=== PATIENT | female | born 1980 | race Caucasian/White ===

== ENCOUNTER 2018-09-19 09:28 | Emergency (ER) | payer OTHER ==
[2018-09-19] MEDS ORDERED: Albuterol/Ipratropium 3.0-0.5 MG/3 ML Neb Soln NEB ONE (09:44)
--- NOTE | 2018-09-19 09:44 | EDM.PDOC ---
ED HPI GENERAL MEDICAL PROBLEM - General Chief Complaint: Respiratory Problem Stated Complaint: SICK Time Seen by Provider: 09/19/18 09:41 - History of Present Illness INITIAL COMMENTS - FREE TEXT/NARRATIVE: HISTORY AND PHYSICAL: History of present illness: Patient 38-year-old female presents with a concern of cough congestion over last week she does have a history of asthma she been using her inhaler with no significant improvement. She denies fever chills nausea vomiting Review of systems: As per history of present illness and below otherwise all systems reviewed and negative. Past medical history: As per history of present illness and as reviewed below otherwise noncontributory. Surgical history: As per history of present illness and as reviewed below otherwise noncontributory. Social history: No reported history of drug or alcohol abuse. Family history: As per history of present illness and as reviewed below otherwise noncontributory. Physical exam: HEENT: Atraumatic, normocephalic, pupils reactive, negative for conjunctival pallor or scleral icterus, mucous membranes moist, throat clear, neck supple, nontender, trachea midline. Lungs: Coarse bilaterally with rhonchi noted right greater than left, breath sounds equal bilaterally, chest nontender. Heart: S1S2, regular, negative for clicks, rubs, or JVD. Abdomen: Soft, nondistended, nontender. Negative for masses or hepatosplenomegaly. Negative for costovertebral tenderness. Pelvis: Stable nontender. Genitourinary: Deferred. Rectal: Deferred. Extremities: Atraumatic, negative for cords or calf pain. Neurovascular unremarkable. Neuro: Awake, alert, oriented. Cranial nerves II through XII unremarkable. Cerebellum unremarkable. Motor and sensory unremarkable throughout. Exam nonfocal. Diagnostics: Influenza screen chest x-ray Therapeutics: Albuterol ipratropium nebulizer Impression: #1 tracheobronchitis #2 history of asthma Definitive disposition and diagnosis as appropriate pending reevaluation and review of above. - Related Data Allergies Allergy/AdvReac Type Severity Reaction Status Date / Time amoxicillin Allergy Nausea and Verified 09/19/18 09:39 Vomiting ampicillin Allergy Nausea and Verified 09/19/18 09:39 Vomiting Home Meds: Home Meds Albuterol [Proventil HFA] 1 puff INH QID PRN 09/19/18 [History] ED ROS GENERAL - Review of Systems Review Of Systems: ROS reveals no pertinent complaints other than HPI. ED EXAM, GENERAL - Physical Exam Exam: See Below (See dictation) Course - Vital Signs Last Recorded V/S: Last Vital Signs Temp 36.4 C 09/19/18 09:40 Pulse 82 09/19/18 09:40 Resp 18 09/19/18 09:40 BP 136/89 09/19/18 09:40 Pulse Ox 96 09/19/18 09:40 - Orders/Labs/Meds Orders: Active Orders 24 hr Category Date Time Status RT Aerosol Therapy [RC] ASDIRECTED Care 09/19/18 09:44 Active Labs: Laboratory Tests 09/19/18 Range/Units 10:15 Urine HCG, Qual NEGATIVE (NEGATIVE) Meds: Medications Discontinued Medications Generic Name Dose Route Start Last Admin Trade Name Frerajat PRN Reason Stop Dose Admin Albuterol/Ipratropium 3 ml 09/19/18 09:44 09/19/18 09:51 Duoneb 3.0-0.5 Mg/3 Ml NEB 09/19/18 09:45 3 ml ONETIME ONE Administration Departure - Departure Time of Disposition: 11:14 Disposition: Home, Self-Care 01 Condition: Good Clinical Impression: Asthma, Tracheobronchitis - Discharge Information Referrals: Baldemar Mata MD [Primary Care Provider] - Forms: ED Department Discharge Additional Instructions: The following information is given to patients seen in the emergency department who are being discharged to home. This information is to outline your options for follow-up care. We provide all patients seen in our emergency department with a follow-up referral. The need for follow-up, as well as the timing and circumstances, are variable depending upon the specifics of your emergency department visit. If you don't have a primary care physician on staff, we will provide you with a referral. We always advise you to contact your personal physician following an emergency department visit to inform them of the circumstance of the visit and for follow-up with them and/or the need for any referrals to a consulting specialist. The emergency department will also refer you to a specialist when appropriate. This referral assures that you have the opportunity for followup care with a specialist. All of these measure are taken in an effort to provide you with optimal care, which includes your followup. Under all circumstances we always encourage you to contact your private physician who remains a resource for coordinating your care. When calling for followup care, please make the office aware that this follow-up is from your recent emergency room visit. If for any reason you are refused follow-up, please contact the [facility] emergency department at and asked to speak to the emergency department charge nurse. Z-J Luis Medrol as prescribed continue albuterol as prescribed and follow-up private medical doctor as needed as discussed and return as needed as discussed - My Orders Last 24 Hours: My Active Orders 09/19/18 09:44 RT Aerosol Therapy [RC] ASDIRECTED - Assessment/Plan Last 24 Hours: My Active Orders 09/19/18 09:44 RT Aerosol Therapy [RC] ASDIRECTED
--- NOTE | 2018-09-19 11:13 | CR ---
EXAMINATION: Portable chest radiograph. HISTORY: Shortness of breath. FINDINGS: The trachea is midline. The cardiomediastinal silhouette is within normal limits. No pulmonary infiltrates, effusions or pneumothorax. Osseous structures appear unremarkable. IMPRESSION: No acute cardiopulmonary process.
== END 2018-09-19 11:28 | disposition home or self-care (01) ==
LOC: MW.ED 09:28
DX: J40 Bronchitis, not specified as acute or chronic (principal); Z88.1 Allergy status to other antibiotic agents; Z79.899 Other long term (current) drug therapy
CPT/HCPCS: 71045; 71045-26; 81025; 87804; 94640; 99284-25; J7620-GY

== ENCOUNTER 2020-01-06 05:56 | Emergency (ER) | payer BC, OTHER ==
[2020-01-06] MEDS ORDERED: Ondansetron 4 MG/2 ML SDV IVPUSH ONE ×2 (06:13→08:14)
[2020-01-06] MEDS ORDERED: Ketorolac 15 MG/ML SDV IVPUSH ONE (06:13)
[2020-01-06] MEDS ORDERED: Sodium Chloride 0.9% 1,000 ML IV ONE ×2 (06:13→10:55)
[2020-01-06] MEDS ORDERED: Sodium Chloride 0.9% 2.5 ML Syringe FLUSH PRN (06:13)
[2020-01-06] MEDS ORDERED: Sodium Chloride 0.9% 10 ML Syringe FLUSH PRN (06:13)
[2020-01-06] MEDS ORDERED: Ketorolac 30 MG/ML SDV ONE ×2 (06:17→06:51)
--- NOTE | 2020-01-06 06:23 | EDM.PDOC ---
<Shea Styles - Last Filed: 01/06/20 07:09> ED HPI GENERAL MEDICAL PROBLEM - General Chief Complaint: Abdominal Pain Stated Complaint: ABDOMINAL PAIN, VOMITING, CHILLS, NAUSEA Time Seen by Provider: 01/06/20 06:13 - History of Present Illness INITIAL COMMENTS - FREE TEXT/NARRATIVE: History of present illness: 39-year-old female presenting with epigastric and left lower quadrant abdominal pain as well as sore throat for the last 2 days, then this morning started to feel some chills and shakes. She did not have access to a thermometer and did not check her temperature. On arrival here she did not have a fever. She has not had any cough or difficulty breathing. She has been nauseated and has been having dry heaves as well. 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 Review of systems: As per history of present illness and below otherwise all systems reviewed and negative. Past medical history: As per history of present illness and as reviewed below otherwise noncontributory. Surgical history: As per history of present illness and as reviewed below otherwise noncontributory. , hysterectomy, intestinal surgery as a baby Social history: No reported history of drug or alcohol abuse. Denies tobacco Family history: As per history of present illness and as reviewed below otherwise noncontributory. Physical exam: GEN: no acute distress, well appearing HEENT: Atraumatic, normocephalic, mucous membranes moist, Neck: supple, nontender, trachea midline. Lungs: No respiratory distress. Heart: RRR Abdomen: Soft, nondistended, left lower quadrant tenderness, epigastric tenderness Back: nontender Extremities: Atraumatic. Neurovascularly intact. Neuro: Awake, alert, oriented. Neuro Exam nonfocal. Skin: warm, dry, no lesions Diagnostics: [] Therapeutics: [] MDM: Impression: [] Plan: [] Definitive disposition and diagnosis as appropriate pending reevaluation and review of above. Mid upper abdominal Pain Score (Numeric/FACES): 7 - Related Data Allergies Allergy/AdvReac Type Severity Reaction Status Date / Time amoxicillin Allergy Nausea and Verified 09/19/18 09:39 Vomiting ampicillin Allergy Nausea and Verified 09/19/18 09:39 Vomiting midazolam [From Versed] Allergy Change Verified 01/06/20 08:16 Mental Status scopolamine Allergy Cannot Verified 01/06/20 08:16 Remember Home Meds: Home Meds DULoxetine HCl [Duloxetine HCl] 30 mg PO DAILY 01/06/20 [History] Gabapentin [Neurontin] 900 mg PO DAILY 01/06/20 [History] valACYclovir [Valtrex] 500 mg PO ASDIRECTED PRN 01/06/20 [History] Past Medical History Respiratory History: Reports: Asthma Gastrointestinal History: Reports: None Genitourinary History: Reports: None 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 History: Reports: - Infectious Disease History Infectious Disease History: Reports: Chicken Pox - Past Surgical History Other GI Surgeries/Procedures: Gastro-atreias Female Surgical History: Reports: Section Social & Family History - Family History Family Medical History: Noncontributory - Caffeine Use Caffeine Use: Reports: Coffee, Soda ED ROS GENERAL - Review of Systems Review Of Systems: See Below (See HPI) ED EXAM, GI/ABD - Physical Exam Exam: See Below (See HPI) EKG INTERPRETATION EKG Interpretation Comments: EKG performed today at 6:09 AM, sinus tachycardia, rate 127, right atrial enlargement, no acute ischemia, no STEMI. Interpreted by me. Course - Vital Signs Text/Narrative:: Abdominal pain, nausea, dry heaves, no measured temperature but did have some chills. Started with a sore throat as well. No coughing. Potential COVID risk therefore COVID swab will be checked. We will also check labs and CT scan. Signed out to DR Bush at 7:00AM Departure - Departure Time of Disposition: 07:10 Disposition: Home, Self-Care 01 Clinical Impression: Sepsis - Discharge Information Referrals: Aimee Manuel NP [Primary Care Provider] - Forms: ED Department Discharge <Hakeem Bush - Last Filed: 01/06/20 11:20> Course - Vital Signs Text/Narrative:: At 930 I discussed the case with Dr. Hernandez. He states he will see the patient At [address] Palm saw the patient in the emergency department he is concerned about the complicated nature of her history and the findings on the CT he thinks she needs further radiology studies that cannot be performed here the potential for GI consult and therefore he recommends she be transferred to [place]. 10:30 a.m. I discussed the case with Dr. Dubose at [place] [facility] he will accept the patient Last Recorded V/S: Last Vital Signs Temp 35.8 C L 01/06/20 06:19 Pulse 106 H 01/06/20 07:44 Resp 16 01/06/20 07:44 BP 120/77 01/06/20 07:44 Pulse Ox 96 01/06/20 07:44 - Orders/Labs/Meds Orders: Active Orders 24 hr Category Date Time Status EKG Documentation Completion [RC] STAT Care 01/06/20 06:13 Active CORONAVIRUS COVID-19 MOUNA [MOLEC] Stat Lab 01/06/20 10:27 Received CULTURE BLOOD [BC] Stat Lab 01/06/20 06:35 Received CULTURE BLOOD [BC] Stat Lab 01/06/20 06:45 Received Sodium Chloride 0.9% [Normal Saline] 1,000 ml Med 01/06/20 10:55 Active IV .Bolus Sodium Chloride 0.9% [Saline Flush] Med 01/06/20 06:13 Active 10 ml FLUSH ASDIRECTED PRN Sodium Chloride 0.9% [Saline Flush] Med 01/06/20 06:13 Active 2.5 ml FLUSH ASDIRECTED PRN Blood Culture x2 Reflex Set [OM.PC] Stat Oth 01/06/20 06:14 Ordered Saline Lock Insert [OM.PC] Stat Oth 01/06/20 06:13 Ordered Medication Orders Sodium Chloride (Normal Saline) 1,000 mls @ 150 mls/hr IV .Bolus ONE Stop: 01/06/20 17:34 Last Admin: 01/06/20 11:02 Dose: 150 mls/hr Documented by: TONJA Sodium Chloride (Saline Flush) 10 ml FLUSH ASDIRECTED PRN PRN Reason: Keep Vein Open Last Admin: 01/06/20 07:17 Dose: 10 ml Documented by: TONJA Sodium Chloride (Saline Flush) 2.5 ml FLUSH ASDIRECTED PRN PRN Reason: Keep Vein Open Last Admin: 01/06/20 07:17 Dose: 2.5 ml Documented by: TONJA Labs: Laboratory Tests 01/06/20 01/06/20 01/06/20 Range/Units 05:35 06:15 06:15 WBC 22.04 H (4.0-11.0) K/uL RBC 4.26 L (4.30-5.90) M/uL Hgb 13.0 (12.0-16.0) g/dL Hct 39.7 (36.0-46.0) % MCV 93.2 (80.0-98.0) fL MCH 30.5 (27.0-32.0) pg MCHC 32.7 (31.0-37.0) g/dL RDW Std Deviation 45.6 (28.0-62.0) fl RDW Coeff of Abdiel 13 (11.0-15.0) % Plt Count 248 (150-400) K/uL MPV 10.50 (7.40-12.00) fL Neut % (Auto) 88.5 H (48.0-80.0) % Lymph % (Auto) 2.6 L (16.0-40.0) % [place] % (Auto) 8.8 (0.0-15.0) % Eos % (Auto) 0.0 (0.0-7.0) % Baso % (Auto) 0.1 (0.0-1.5) % Neut # (Auto) 19.5 H (1.4-5.7) K/uL Lymph # (Auto) 0.6 (0.6-2.4) K/uL [place] # (Auto) 2.0 H (0.0-0.8) K/uL Eos # (Auto) 0.0 (0.0-0.7) K/uL Baso # (Auto) 0.0 (0.0-0.1) K/uL Nucleated RBC % 0.0 /100WBC Nucleated RBCs # 0 K/uL Lactate (0.20-2.00) mmol/L Sodium 134 L (136-145) mmol/L Potassium 3.7 (3.5-5.1) mmol/L Chloride 99 (98-107) mmol/L Carbon Dioxide 25.8 (21.0-32.0) mmol/L BUN 10 (7.0-18.0) mg/dL Creatinine 0.8 (0.6-1.0) mg/dL Est Cr Clr Drug Dosing TNP Estimated GFR (MDRD) > 60.0 ml/min Glucose 138 H (74-106) mg/dL Calcium 9.0 (8.5-10.1) mg/dL Total Bilirubin 0.4 (0.2-1.0) mg/dL AST 13 L (15-37) IU/L ALT 18 (14-63) IU/L Alkaline Phosphatase 86 (46-116) U/L Total Protein 6.8 (6.4-8.2) g/dL Albumin 3.8 (3.4-5.0) g/dL Globulin 3.0 (2.6-4.0) g/dL Albumin/Globulin Ratio 1.3 (0.9-1.6) Lipase 43 L (73-393) U/L Urine Color Urine Appearance Urine pH (5.0-8.0) Ur Specific [place] (1.001-1.035) Urine Protein (NEGATIVE) mg/dL Urine Glucose (UA) (NEGATIVE) mg/dL Urine Ketones (NEGATIVE) mg/dL Urine Occult Blood (NEGATIVE) Urine Nitrite (NEGATIVE) Urine Bilirubin (NEGATIVE) Urine Urobilinogen (<2.0) EU/dL Ur Leukocyte Esterase (NEGATIVE) COVID-19 (MOUNA) NEGATIVE (NEGATIVE) 01/06/20 01/06/20 Range/Units 06:15 07:17 WBC (4.0-11.0) K/uL RBC (4.30-5.90) M/uL Hgb (12.0-16.0) g/dL Hct (36.0-46.0) % MCV (80.0-98.0) fL MCH (27.0-32.0) pg MCHC (31.0-37.0) g/dL RDW Std Deviation (28.0-62.0) fl RDW Coeff of Abdiel (11.0-15.0) % Plt Count (150-400) K/uL MPV (7.40-12.00) fL Neut % (Auto) (48.0-80.0) % Lymph % (Auto) (16.0-40.0) % [place] % (Auto) (0.0-15.0) % Eos % (Auto) (0.0-7.0) % Baso % (Auto) (0.0-1.5) % Neut # (Auto) (1.4-5.7) K/uL Lymph # (Auto) (0.6-2.4) K/uL [place] # (Auto) (0.0-0.8) K/uL Eos # (Auto) (0.0-0.7) K/uL Baso # (Auto) (0.0-0.1) K/uL Nucleated RBC % /100WBC Nucleated RBCs # K/uL Lactate 1.8 (0.20-2.00) mmol/L Sodium (136-145) mmol/L Potassium (3.5-5.1) mmol/L Chloride (98-107) mmol/L Carbon Dioxide (21.0-32.0) mmol/L BUN (7.0-18.0) mg/dL Creatinine (0.6-1.0) mg/dL Est Cr Clr Drug Dosing Estimated GFR (MDRD) ml/min Glucose (74-106) mg/dL Calcium (8.5-10.1) mg/dL Total Bilirubin (0.2-1.0) mg/dL AST (15-37) IU/L ALT (14-63) IU/L Alkaline Phosphatase (46-116) U/L Total Protein (6.4-8.2) g/dL Albumin (3.4-5.0) g/dL Globulin (2.6-4.0) g/dL Albumin/Globulin Ratio (0.9-1.6) Lipase (73-393) U/L Urine Color YELLOW Urine Appearance SLT CLOUDY Urine pH 5.5 (5.0-8.0) Ur Specific [place] 1.025 (1.001-1.035) Urine Protein NEGATIVE (NEGATIVE) mg/dL Urine Glucose (UA) NEGATIVE (NEGATIVE) mg/dL Urine Ketones NEGATIVE (NEGATIVE) mg/dL Urine Occult Blood NEGATIVE (NEGATIVE) Urine Nitrite NEGATIVE (NEGATIVE) Urine Bilirubin NEGATIVE (NEGATIVE) Urine Urobilinogen 0.2 (<2.0) EU/dL Ur Leukocyte Esterase NEGATIVE (NEGATIVE) COVID-19 (MOUNA) (NEGATIVE) Meds: Medications Generic Name Dose Route Start Last Admin Trade Name Freq PRN Reason Stop Dose Admin Sodium Chloride 1,000 mls @ 150 mls/hr 01/06/20 10:55 01/06/20 11:02 Normal Saline IV 01/06/20 17:34 150 mls/hr .Bolus ONE Administration Sodium Chloride 10 ml 01/06/20 06:13 07/11/20 07:17 Saline Flush FLUSH 10 ml ASDIRECTED PRN Administration Keep Vein Open Sodium Chloride 2.5 ml 01/06/20 06:13 01/06/20 07:17 Saline Flush FLUSH 2.5 ml ASDIRECTED PRN Administration Keep Vein Open Discontinued Medications Generic Name Dose Route Start Last Admin Trade Name Chantel PRN Reason Stop Dose Admin Sodium Chloride 1,000 mls @ 999 mls/hr 01/06/20 06:13 01/06/20 06:23 Normal Saline IV 01/06/20 07:13 999 mls/hr .Bolus ONE Administration Ceftriaxone Sodium/Dextrose 1 50 mls @ 100 mls/hr 01/06/20 06:36 01/06/20 07:09 gm/ Premix IV 01/06/20 07:05 100 mls/hr ONETIME ONE Administration Metronidazole 500 mg/ Premix 100 mls @ 100 mls/hr 01/06/20 09:15 01/06/20 09:26 IV 01/06/20 10:14 100 mls/hr ONETIME ONE Administration Iopamidol 100 ml 01/06/20 08:36 01/06/20 08:36 Isovue-370 (76%) IVPUSH 01/06/20 08:37 100 ml ONETIME ONE Administration Ketorolac Tromethamine 15 mg 01/06/20 06:13 01/06/20 06:25 Toradol IVPUSH 01/06/20 06:14 15 mg ONETIME ONE Administration Ketorolac Tromethamine Confirm 01/06/20 06:17 01/06/20 06:25 Toradol Administered 01/06/20 06:18 Not Given Dose 30 mg .ROUTE .STK-MED ONE Ketorolac Tromethamine 15 mg 01/06/20 06:45 01/06/20 07:08 Toradol IVPUSH 01/06/20 06:46 15 mg NOW STA Administration Ketorolac Tromethamine Confirm 01/06/20 06:51 01/06/20 07:08 Toradol Administered 01/06/20 06:52 Not Given Dose 30 mg .ROUTE .STK-MED ONE Morphine Sulfate 4 mg 01/06/20 06:46 01/06/20 07:09 Morphine IVPUSH 01/06/20 06:47 4 mg ONETIME ONE Administration Morphine Sulfate 4 mg 01/06/20 09:12 01/06/20 09:26 Morphine IVPUSH 01/06/20 09:13 4 mg ONETIME ONE Administration Ondansetron HCl 4 mg 01/06/20 06:13 01/06/20 06:28 Zofran IVPUSH 01/06/20 06:14 4 mg ONETIME ONE Administration Ondansetron HCl 4 mg 01/06/20 08:14 01/06/20 08:16 Zofran IVPUSH 01/06/20 08:15 4 mg ONETIME ONE Administration Ondansetron HCl Confirm 01/06/20 08:14 01/06/20 08:18 Zofran Administered 01/06/20 08:15 Not Given Dose 4 mg .ROUTE .STK-MED ONE Sepsis Event Note (ED) - Focused Exam Vital Signs: Vital Signs Temp Pulse Resp BP Pulse Ox 01/06/20 07:44 106 H 16 120/77 96 01/06/20 06:32 112 H 14 116/75 98 01/06/20 06:19 35.8 C L 148 H 20 104/74 96 - My Orders Last 24 Hours: My Active Orders 01/06/20 10:27 CORONAVIRUS COVID-19 MOUNA [MOLEC] Stat 01/06/20 10:55 Sodium Chloride 0.9% [Normal Saline] 1,000 ml IV .Bolus - Assessment/Plan Last 24 Hours: My Active Orders 01/06/20 10:27 CORONAVIRUS COVID-19 MOUNA [MOLEC] Stat 01/06/20 10:55 Sodium Chloride 0.9% [Normal Saline] 1,000 ml IV .Bolus
[2020-01-06] MEDS ORDERED: cefTRIAXone 1 GM in Premix Bag 1 BAG IV ONE (06:36)
[2020-01-06] MEDS ORDERED: Ketorolac 15 MG/ML SDV IVPUSH STA (06:45)
[2020-01-06] MEDS ORDERED: Morphine 4 MG/ML Syringe IVPUSH ONE ×2 (06:46→09:12)
[2020-01-06 06:47] LABS: BLOOD UREA NITROGEN,BUN 10 mg/dL (7.0-18.0); CARBON DIOXIDE,CO2 25.8 mmol/L (21.0-32.0); CHLORIDE,CL 99 mmol/L (98-107); GLUCOSE RANDOM 138 mg/dL (74-106); LIPASE 43 U/L (73-393); POTASSIUM,K 3.7 mmol/L (3.5-5.1); SODIUM,NA 134 mmol/L (136-145)
[2020-01-06] MEDS ORDERED: Ondansetron 4 MG/2 ML SDV ONE (08:14)
[2020-01-06] MEDS ORDERED: Iopamidol 755 Mg/ML 100 ML Bottle IVPUSH ONE (08:36)
--- NOTE | 2020-01-06 09:05 | CT ---
HISTORY: Abdominal pain. TECHNIQUE: Intravenous contrast enhanced CT of the abdomen and pelvis. 100 mL of Isovue-370 intravenous contrast administered. COMPARISON: No prior. FINDINGS: Approximately 12 mm low-density lesion within the lateral segment left hepatic lobe on image #[address] appearance. Sub cm low-density lesion along the posterior aspect of the posterior segment right hepatic lobe on image #39 is too small to characterize. No biliary ductal dilatation. The gallbladder appears distended. The spleen and adrenal glands are normal. No focal pancreatic abnormality. Symmetric nephrograms. No renal mass or hydronephrosis. Urinary bladder is mildly distended. Patient is status post hysterectomy. There is a trace amount of pelvic free fluid. - There is localized inflammatory change associated with the small bowel at the central abdominal level as seen on image #78 of series 201. There is adjacent fluid and an approximately 2.2 cm rounded lesion on image #78 of series 201 with a thickened wall. Differential considerations are primarily between small-bowel diverticulitis or possibly Meckel`s diverticulitis. No dilated small bowel loops. No free intraperitoneal air. The appendix is seen on image #92 and appears normal. There is no colonic diverticulitis. - No aortic aneurysm. No adenopathy. - Mild dependent atelectasis within the lungs. 4 mm micro nodule right middle lobe image #14. - No acute fractures. IMPRESSION: 1. Inflammatory changes associated with the small bowel in the central abdomen. There is fluid adjacent to small bowel loops and a rounded thick walled lesion present. Primary considerations are between small-bowel diverticulitis versus Meckel`s diverticulitis. 2. No appendicitis. 3. Distended gallbladder. 4. Approximately 12 mm low-density lesion within the lateral segment left hepatic lobe has a nonspecific CT appearance. Consider either CT follow-up to determine stability or liver MRI for further characterization. 5. 4 mm micro nodule within the right middle lobe. Dictated by Zaki Hoffmann MD @ 01/06/2020 9:04:05 AM Please note that all CT scans at this facility use dose modulation, iterative reconstruction, and/or weight-based dosing when appropriate to reduce radiation dose to as low as reasonably achievable. Dictated by: Zaki Hoffmann MD @ 01/06/2020 09:04:09 (Electronically Signed)
[2020-01-06] MEDS ORDERED: metroNIDAZOLE/Normal Saline 500 MG in Premix Bag 1 BAG IV ONE (09:15)
--- NOTE | 2020-01-06 11:34 | PCM.SN.2 ---
- Free Text/Narrative Note: pt seen, chart reviewed; consult dictated.
--- NOTE | 2020-01-06 19:08 | CONS ---
DATE OF CONSULTATION: 01/06/2020 DATE OF : 1980 PRIMARY CARE PHYSICIAN: Aimee Manuel NP REFERRING PHYSICIAN: Shea Styles MD REASON FOR CONSULTATION: Consulting question is abdominal pain. 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 The pain is mainly in the left lower quadrant and also feels a little bit nauseated and also some chills this morning. The patient known to have gallbladder problem she said almost for about 10 to 12 years. She never had the chance to take care of it. Of note, the patient also had intestinal atresia as a and had abdominal surgery multiple times in [facility], and per patient, she spent 5 months in the hospital. PAST MEDICAL HISTORY: Denied diabetic, [place], CVA, hypertension. The patient has asthma. PAST SURGICAL HISTORY: The patient had multiple surgery and abdominal hysterectomy and C- section x4. ALLERGIES: Please refer to nursing note for detail. MEDICATIONS: Please refer to nursing note for detail. PHYSICAL EXAMINATION: GENERAL: A very pleasant lady, smiled to the doctor, resting comfortably on stretcher. HEENT: Normocephalic and atraumatic. Sclerae anicteric. LUNGS: Clear to auscultation. HEART: Regular rate and rhythm. ABDOMEN: Soft, nondistended. No pulsating tender midline abdominal structure. A large transverse incision from left to the right, right between the epigastrium and the umbilicus. No hernia appreciated. Exquisite tenderness on the left lower quadrant. No rebound tenderness. LABORATORY DATA: Upon consultation, white count 22, H and H are 13 and 39.7, and lactate is 1.8, and sodium 134, potassium 3.7, BUN is 10, creatinine is 0.8, glucose is 138, T- bili is 0.4 and AST and ALT are normal at 13 and 18, alkaline phosphatase is 86, lipase is 43 and normal. UA is within normal limit. No symptoms of urinary tract infection. COVID-19 is negative. CAT scan; inflammatory change associated with the small bowel in the central abdomen with fluid adjacent and a round thick- walled lesion present. Primary consideration is small bowel diverticulitis versus Meckel diverticulitis. No appendicitis. Distended gallbladder and a 12 mm low-density lesion in the liver. IMPRESSION: Abdominal pain, managed with a pain med at the time being, has a possible Meckel diverticulitis. The patient may need surgical intervention. It is not an acute abdomen at this stage. With the patient's complicated surgical history and also history of multiple surgery as a and spent 5 months in [facility] and the patient has also worked in this hospital, the patient requested to be transferred to a higher level of care and prefer not to have surgical intervention in the present place, and with a complicated surgical history and with a possible Meckel, the patient may even benefit to have a Meckel scan before surgical intervention. With everything considered, the patient would benefit to transfer to higher level of care and have a Meckel scan before surgery if surgically indicated. Plan has been discussed with the ER provider, Dr. Bush. As always, thank you for the kind referral. SHARONA ARGUELLO /[id number]
== END 2020-01-06 11:59 | disposition home or self-care (01) ==
LOC: MW.ED 05:56
DX: A41.9 Sepsis, unspecified organism (principal); R00.0 Tachycardia, unspecified; R10.32 Left lower quadrant pain; R10.13 Epigastric pain; Z20.828 Contact with and (suspected) exposure to other viral communicable diseases; Z79.899 Other long term (current) drug therapy; Z98.890 Other specified postprocedural states; Z88.1 Allergy status to other antibiotic agents; Z88.8 Allergy status to other drugs, medicaments and biological substances; Z88.6 Allergy status to analgesic agent
CPT/HCPCS: 36415; 74177; 80053; 81003; 83605; 83690; 85025; 87040; 87635; 93005; 96365; 96367; 96375; 96376; 99284; J0696; J1885; J2270; J2405; J3490; J7030; Q9967; U0002